=== PATIENT | female | born 1940 | race Caucasian/White ===

== ENCOUNTER 2017-11-06 11:47 | Emergency (ER) | payer MEDICARE ==
[2017-11-06 14:23] LABS: Hemoglobin 14.7 g/dL (12.0-16.0); Mean Corpuscular HGB CONC 34.2 g/dL (32.0-36.0); Mean Corpuscular Volume 93.7 fl (81.0-99.0); Mean Platelet Volume 6.8 fL (7.4-10.4); Platelet Count 251 thou/uL (130-400); White Blood Cell (WBC) Count 9.1 thou/uL (4.8-10.8)
[2017-11-06 14:38] LABS: Band 11 % (5-11); Eosinophils 2 % (0-10); Lymphocytes 4 % (21-51); MDiff Complete? YES; Monocytes 3 % (0-10); Neutrophil 78 % (42-75); PLT Morphology Comment Appears Adequate; RBC Morphology Normal; Reactive Lymphocytes 2 % (0-10)
[2017-11-06 14:47] LABS: ALT (SGPT) 18 U/L (8-55); AST (SGOT) 24 U/L (5-34); Alkaline Phosphatase 84 U/L (40-150); Anion Gap 11 mmol/L (10-20); BUN (Urea Nitrogen) 22 mg/dL (9.8-20.1); CK (CPK) 35 U/L (29-168); Calc. Creatinine Clearance 0 mL/min (70-130); Calcium 9.3 mg/dL (7.8-10.44); Carbon Dioxide 28 mmol/L (23-31); Chloride 104 mmol/L (98-107); Estimated GFR-MDRD 87; Globulin 3.6 g/dL (2.4-3.5); Glucose 112 mg/dL (83-110); Potassium 3.8 mmol/L (3.5-5.1); Protein, Total 7.6 g/dL (6.0-8.3); Sodium 139 mmol/L (136-145)
[2017-11-06 14:48] LABS: CKMB 1.4 ng/mL (0-6.6); Troponin I Less than 0.010 ng/mL (< 0.028)
[2017-11-06] MEDS ORDERED: Meclizine HCl 25 MG TAB ONE (14:53)
--- NOTE | 2017-11-06 15:01 | CT ---
CT HEAD WITHOUT CONTRAST: Date: 11/06/17 Multiple axial tomograms obtained through the head without IV enhancement. HISTORY: Dizziness. There are no comparison studies. FINDINGS: Mild cortical volume loss. There is ventriculomegaly which is disproportioned to the degree of atroph y. NPH should be considered. There are chronic ischemic changes in the periventricular white matter, although some of this could represent transependymal migration of CSF given the ventriculomegaly. No evidence of mass, hemorrhage, or acute cortical infarct. Paranasal sinuses are well aerated. There is opacification of the right mastoid air cells. IMPRESSION: 1. Ventriculomegaly which is disproportionate to the atrophy. Consider NPH. 2. 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 3. Opacification of the right mastoid air cells. POS: [facility]
[2017-11-06 16:23] LABS: Bilirubin Negative (Negative); Blood, Urine Negative (Negative); Clarity CLOUDY (Clear); Glucose, Urine (Dipstick) Negative (Negative); Leukocyte Moderate (Negative); Nitrite Negative (Negative); Protein, Urine (Dipstick) Negative (Neg-Trace); Specific Gravity, Urine 1.022 (1.002-1.036); Urobilinogen 0.2 mg/dL (0.2-1.0); pH, Urine 5.5 (5.0-9.0)
[2017-11-06 16:27] LABS: Bacteria/HPF None Seen HPF (None Seen); Hyaline Casts/LPF 4-6 HYALINE CAST LPF (0-3 Hyaline); Pathc Cast-AUWi Flag 1.16 (0-2.49)
== END 2017-11-06 17:04 | disposition home or self-care (01) ==
LOC: ERS 11:47
DX: R42 Dizziness and giddiness (principal)
CPT/HCPCS: 70450; 80053; 81003; 81015; 82553; 83880; 84484; 85025; 87086; 93005

== ENCOUNTER 2020-01-09 11:49 | Emergency (ER) | payer MEDICARE ==
--- NOTE | 2020-01-09 12:22 | RAD ---
XR Hip Rt 2-3 View History: Fall Comparison: None. Findings: Old right superior and inferior pubic rami fractures. The right femoral head and neck are i ntact. Right SI joint is intact. Soft tissues are unremarkable. Impression: Old right obturator ring fractures. No acute osseous abnormality.
--- NOTE | 2020-01-09 13:28 | CT ---
CT Pelvis WO Con History: Pain after a fall Comparison: Radiograph same day Findings: Moderate diverticular disease of the sigmoid colon. Small cysts of the vaginal cuff. Old right superior and inferior pubic rami fractures. No acute pubic ramus fracture. The femoral heads and necks are intact. Acetabulum are intact. The anterior and posterior columns are intact. No SI joint widening. No sacral fracture. Impression: Old right obturator ring fractures. No acute osseous abnormality.
[2020-01-09] MEDS ORDERED: Ketorolac Tromethamine 30 MG/ML VIAL ONE (14:35)
== END 2020-01-09 14:40 | disposition home or self-care (01) ==
LOC: ERS 11:49
DX: S70.01XA Contusion of right hip, initial encounter (principal); W18.30XA Fall on same level, unspecified, initial encounter
CPT/HCPCS: 72192; 96372; J1885